=== PATIENT | male | born 1940 | race Two or more races ===

== ENCOUNTER 2023-01-18 12:39 | Outpatient (REF) | payer MEDICAID, SELFPAY ==
--- NOTE | ~2023-01-18 | MM_ITS ---
EXAMINATION: MM SCREENING DIGITAL BREAST TOMOSYNTHESIS, UNILATERAL CLINICAL INFORMATION: Screening. Asymptomatic. The patient is status post left mastectomy. COMPARISON: Mammography: There are no prior comparison studies. TECHNIQUE: Digital breast tomosynthesis is performed in both the craniocaudal and mediolateral oblique views along with computer-aided detection (CAD). Synthesized 2D images are generated from the tomosynthesis. FINDINGS: There are scattered areas of fibroglandular density (ACR BI-RADS breast composition Category b). There are no significant masses, abnormal calcifications, or other abnormalities. MM/MM tomosynthesis screening RT IMPRESSION: No mammographic evidence of malignancy. ASSESSMENT: BI-RADS BI-RADS 1 - Negative RECOMMENDATION: Routine annual mammography screening. 1 year F/U This patient's information was entered into a reminder system with a target due date for their next mammogram.
== END 2023-01-18 12:40 | disposition home or self-care (01) ==
LOC: HO.US 12:39
PROVIDERS: PCP Family Medicine; Visit Provider Family Medicine
DX: Z12.31 Encounter for screening mammogram for malignant neoplasm of breast (principal); R91.1 Solitary pulmonary nodule; N28.1 Cyst of kidney, acquired; K86.2 Cyst of pancreas
CPT/HCPCS: 71250; 76700; 77063; 77067

== ENCOUNTER → 2023-01-18 13:15 | Outpatient (BNV) | payer MEDICAID, SELFPAY | PROVIDERS: PCP Family Medicine; Visit Provider Radiology Diagnostic Radiology | DX: Z12.31 Encounter for screening mammogram for malignant neoplasm of breast (principal) | CPT/HCPCS: 77063; 77067 ==